=== PATIENT | female | born 1950 | race Two or more races ===

== ENCOUNTER 2024-07-05 09:34 | Emergency (ER) | payer OTHER ==
[~2024-07-05] VITALS: Ht 162.6 cm; Wt 60.8 kg
[2024-07-05] MEDS ORDERED: PROZAC20 MG (09:37)
[2024-07-05] MEDS ORDERED: TOPROL XL25 M1 (09:38)
== END 2024-07-05 10:57 | disposition home or self-care (01) ==
LOC: ER 09:36
DX: S82.891A Other fracture of right lower leg, initial encounter for closed fracture (principal); W10.8XXA Fall (on) (from) other stairs and steps, initial encounter; Y93.89 Activity, other specified; Y92.89 Other specified places as the place of occurrence of the external cause; Y99.8 Other external cause status